=== PATIENT | male | born 1960 | race Hispanic/Latino ===

== ENCOUNTER 2020-09-27 18:18 | Inpatient (IN) | payer MEDICARE ==
[~2020-09-27] VITALS: Ht 190.5 cm; Wt 61.3 kg
[2020-09-27] MEDS ORDERED: VANCOMYCIN HCL 1GM/NS 250 ML BAG IV SCH (19:30)
[2020-09-27 20:00] VITALS: BP 97/57
[2020-09-27] MEDS: SODIUM CHLORIDE 0.9% 1000ML 1,000 ML IV SCH (20:59)
[2020-09-27 21:43] LABS: ALBUMIN 3.1 g/dL (3.5-5.0); ALBUMIN/GLOBULIN RATIO 0.7 (0.8-2.0); ANION GAP 22.7 mmol/L (8-16); CREATININE, SERUM 5.81 mg/dL (0.72-1.25); POTASSIUM 5.7 mmol/L (3.5-5.1)
[2020-09-27 21:44] LABS: HEMATOCRIT 24.2 % (38.2-49.6); HEMOGLOBIN 7.7 g/dL (14.0-18.0); MEAN CORPUSCULAR HEMOGLOBIN 29.5 pg (28-32); MEAN CORPUSCULAR HGB CONC 31.8 g/dL (31-35); MEAN CORPUSCULAR VOLUME 92.7 fL (81-99); PLATELET COUNT 137 x10e3/uL (140-360); RED BLOOD COUNT 2.61 x10e6/uL (4.3-5.7); RED CELL DISTRIBUTION WIDTH 13.7 % (11.7-14.4)
[2020-09-27] MEDS: PIPERACILLIN/TAZOBACTAM 3.375 GM in SODIUM CHLORIDE 0.9% 50ML 50 ML IV SCH (21:55)
[2020-09-27 22:02] LABS: EOSINOPHILS % (MANUAL) 1 % (0-7); LYMPHOCYTES % (MANUAL) 10 % (19-48); MONOCYTES % (MANUAL) 9 % (3.4-9.0); NEUTROPHILS % (MANUAL) 80 % (40-74); PLATELET MORPHOLOGY COMMENT NORMAL
[2020-09-27 22:04] LABS: PLATELET ESTIMATE SLIGHTLY DECREASED; RBC MORPHOLOGY COMMENT NORMAL
[2020-09-27] MEDS ORDERED: SOD POLYSTYRENE SULFONATE SUSP 15 GM/60 ML BTL PO ONE (23:00)
[2020-09-27] MEDS ORDERED: LISINOPRIL2.5 MG PO (23:11)
[2020-09-27] MEDS ORDERED: METFORMIN HCL500 MG PO (23:11)
[2020-09-27] MEDS ORDERED: FERROUS SULFAT325 MG PO (23:11)
[2020-09-27] MEDS ORDERED: GABAPENTIN400 MG PO (23:11)
[2020-09-27] MEDS ORDERED: DORZOLAMIDE 2%10 ML OD (23:16)
[2020-09-27] MEDS ORDERED: ARICEPT5 MG PO (23:16)
[2020-09-27] MEDS ORDERED: LANTANAPROST OD (23:16)
[2020-09-27] MEDS ORDERED: RHOPRESSA2.5 ML OD (23:16)
[2020-09-27] MEDS ORDERED: COMBIGEN OU (23:17)
[2020-09-28] VITALS (8 sets, daily range): BP systolic 96–131; BP diastolic 57–75
[2020-09-28 06:02] LABS: ANION GAP 20.6 mmol/L (8-16); CALCIUM 8.3 mg/dL (8.4-10.2); CREATININE, SERUM 5.85 mg/dL (0.72-1.25); POTASSIUM 4.6 mmol/L (3.5-5.1)
[2020-09-28] MEDS ORDERED: LIPITOR10 MG PO (06:21)
[2020-09-28 06:34] LABS: THYROID STIMULATING HORMONE 0.561 uIU/mL (0.350-4.940)
[2020-09-28] MEDS ORDERED: LANTUS 3ML100 UNITS/ SQ ×2 (07:53)
[2020-09-28] MEDS: SODIUM CHLORIDE 0.9% 1000ML 1,000 ML IV SCH ×2 (08:30→21:57)
[2020-09-28] MEDS: PIPERACILLIN/TAZOBACTAM 3.375 GM in SODIUM CHLORIDE 0.9% 50ML 50 ML IV SCH ×2 (08:30→21:51)
[2020-09-28] MEDS ORDERED: DEXTROSE 50% SYRINGE 50 ML IV PRN (13:00)
[2020-09-28] MEDS: INSULIN LISPRO 100 UNIT/1 ML 3ML VIAL SQ SCH ×3 (16:30→22:25)
[2020-09-28] MEDS: MUPIROCIN 2% OINT 22 GM TUBE TOP SCH (16:34)
[2020-09-28 18:12] LABS: COLOR,URINE YELLOW (YELLOW)
[2020-09-28 18:13] LABS: CLARITY,URINE CLEAR (CLEAR); KETONES,URINE NEGATIVE (NEGATIVE); LEUKOCYTE ESTERASE ,URINE NEGATIVE (NEGATIVE); NITRITE,URINE NEGATIVE (NEGATIVE); PROTEIN,URINE DIPSTICK 1+ (NEGATIVE); URINE UROBILINOGEN 0.2 mg/dL (0.2 - 1)
[2020-09-28 18:16] LABS: AMORPHOUS SEDIMENT,URINE FEW (FEW); BACTERIA,URINE RARE /HPF; RBC,URINE 0-5 /HPF (0-5)
[2020-09-28] MEDS ORDERED: ONDANSETRON HCL INJ 2MG/ML 2ML 2 MG/ML VIAL IV PRN (18:45)
[2020-09-28 18:57] LABS: EOSINOPHIL SMEAR,URINE NONE SEEN (NONE SEEN)
[2020-09-28] MEDS ORDERED: FUROSEMIDE INJ 10 MG/ML 4 ML VIAL IV STA (23:08)
[2020-09-28] MEDS ORDERED: FUROSEMIDE INJ 10 MG/ML 4 ML VIAL ONE (23:23)
[2020-09-28] MEDS ORDERED: ACETAMINOPHEN 325 MG TAB ONE (23:23)
[2020-09-28] MEDS: ACETAMINOPHEN 325 MG TAB PO PRN (23:30)
[2020-09-29] VITALS (8 sets, daily range): BP systolic 106–174; BP diastolic 65–84
[2020-09-29] MEDS: ACETAMINOPHEN 325 MG TAB PO PRN ×2 (00:53→21:12)
[2020-09-29 05:24] LABS: BASOPHILS # (AUTO) 0.1 (0.0-0.1); BASOPHILS % 0.4 % (0.0-1.0); EOSINOPHILS % 0.1 % (0.0-6.0); HEMATOCRIT 21.3 % (38.2-49.6); LYMPHOCYTES # (AUTO) 0.6 (1.0-3.2); LYMPHOCYTES % 5.2 % (18.0-39.1); MEAN CORPUSCULAR HEMOGLOBIN 29.5 pg (28-32); MEAN CORPUSCULAR HGB CONC 32.4 g/dL (31-35); MONOCYTES # (AUTO) 1.2 (0.2-0.8); MONOCYTES % 10.4 % (4.4-11.3); NEUTROPHILS # (AUTO) 9.7 (2.1-6.9); NEUTROPHILS % 82.9 % (38.7-80.0); PLATELET COUNT 181 x10e3/uL (140-360); RED BLOOD COUNT 2.34 x10e6/uL (4.3-5.7); RED CELL DISTRIBUTION WIDTH 13.6 % (11.7-14.4)
[2020-09-29 05:53] LABS: ANION GAP 20.7 mmol/L (8-16); CALCIUM 8.4 mg/dL (8.4-10.2); CREATININE, SERUM 6.8 mg/dL (0.72-1.25); POTASSIUM 4.7 mmol/L (3.5-5.1)
[2020-09-29 06:12] LABS: HEMOGLOBIN 6.9 g/dL (14.0-18.0)
[2020-09-29] MEDS: INSULIN LISPRO 100 UNIT/1 ML 3ML VIAL SQ SCH ×4 (07:30→21:14)
[2020-09-29] MEDS: MUPIROCIN 2% OINT 22 GM TUBE TOP SCH (09:00)
[2020-09-29] MEDS: PIPERACILLIN/TAZOBACTAM 3.375 GM in SODIUM CHLORIDE 0.9% 50ML 50 ML IV SCH ×2 (09:00→21:08)
[2020-09-29] MEDS ORDERED: VANCOMYCIN HCL 1GM/NS 250 ML BAG IV ONE (13:30)
[2020-09-29] MEDS ORDERED: Vancomycin IV 1 GM in SODIUM CHLORIDE 0.9% 250ML 250 ML IV ONE (14:30)
[2020-09-29] MEDS: SODIUM CHLORIDE 0.9% 1000ML 1,000 ML IV SCH (17:30)
[2020-09-29] MEDS ORDERED: LIDOCAINE HCL 1% LOCAL INJ 20 ML VIAL ONE (17:54)
[2020-09-29] MEDS ORDERED: SODIUM CHLORIDE 0.9% 250ML 250 ML ONE (17:54)
[2020-09-29] MEDS: EPOETIN ALFA-EPBX 10,000 UNIT/ML VIAL SC SCH (18:00)
[2020-09-29] MEDS ORDERED: SODIUM CHLORIDE 0.9% 250ML 250 ML IV ONE (19:45)
[2020-09-29 19:46] LABS: INR 1.07; PROTHROMBIN TIME 14.1 seconds (11.9-14.5)
[2020-09-30] VITALS (7 sets, daily range): BP systolic 95–148; BP diastolic 57–84
[2020-09-30 06:23] LABS: CALCIUM IONIZED 1.2 mmol/L (1.09-1.30)
[2020-09-30 06:39] LABS: ANION GAP 20.8 mmol/L (8-16); CALCIUM 8.2 mg/dL (8.4-10.2); CREATININE, SERUM 7.43 mg/dL (0.72-1.25); POTASSIUM 4.8 mmol/L (3.5-5.1)
[2020-09-30] MEDS: SODIUM CHLORIDE 0.9% 1000ML 1,000 ML IV SCH (07:45)
[2020-09-30] MEDS: PIPERACILLIN/TAZOBACTAM 3.375 GM in SODIUM CHLORIDE 0.9% 50ML 50 ML IV SCH ×2 (08:54→21:37)
[2020-09-30] MEDS: MUPIROCIN 2% OINT 22 GM TUBE TOP SCH (08:54)
[2020-09-30] MEDS: INSULIN LISPRO 100 UNIT/1 ML 3ML VIAL SQ SCH ×4 (09:22→22:07)
[2020-09-30] MEDS ORDERED: SODIUM CHLORIDE 0.9% 250ML 500 ML IV PRN (13:00)
[2020-09-30] MEDS ORDERED: SODIUM CHLORIDE 0.9% 1000ML 2,000 ML IV PRN (13:00)
[2020-09-30] MEDS ORDERED: ALBUMIN 25% 12.5GM 0.25 GM/ML BTL IV PRN (13:00)
[2020-09-30] MEDS ORDERED: MANNITOL 25% 12.5GM/50 ML VIAL IV PRN (13:00)
[2020-09-30] MEDS ORDERED: HEPARIN SOD (PORCINE) 1000 UNIT/ML SDV IV PRN (13:00)
[2020-09-30] MEDS ORDERED: MANNITOL 25% 12.5GM/50ML 100 ML ONE (13:01)
[2020-09-30] MEDS ORDERED: SODIUM CHLORIDE 0.9% 1000ML 2,000 ML ONE (13:02)
[2020-09-30] MEDS ORDERED: MANNITOL 25% 12.5GM/50ML 50 ML ONE (13:30)
[2020-09-30 14:11] LABS: CALCIUM 7.9 mg/dL (8.4-10.2); CREATININE, SERUM 6.78 mg/dL (0.72-1.25)
[2020-10-01] VITALS (9 sets, daily range): BP systolic 129–156; BP diastolic 70–87
[2020-10-01 06:40] LABS: ANION GAP 17.9 mmol/L (8-16); CALCIUM 8.5 mg/dL (8.4-10.2); CREATININE, SERUM 5.76 mg/dL (0.72-1.25); POTASSIUM 3.9 mmol/L (3.5-5.1)
[2020-10-01] MEDS: PIPERACILLIN/TAZOBACTAM 3.375 GM in SODIUM CHLORIDE 0.9% 50ML 50 ML IV SCH ×2 (09:30→21:55)
[2020-10-01] MEDS: MUPIROCIN 2% OINT 22 GM TUBE TOP SCH (09:30)
[2020-10-01] MEDS: INSULIN LISPRO 100 UNIT/1 ML 3ML VIAL SQ SCH ×4 (11:01→21:53)
[2020-10-01 17:57] LABS: TOTAL PROTEIN, URINE 38.3 mg/dL (1-14)
[2020-10-01] MEDS: ACETAMINOPHEN 325 MG TAB PO PRN (23:15)
[2020-10-02] VITALS (9 sets, daily range): BP systolic 122–148; BP diastolic 77–88
[2020-10-02 06:13] LABS: ANION GAP 20.5 mmol/L (8-16); CALCIUM 8.5 mg/dL (8.4-10.2); CREATININE, SERUM 5.99 mg/dL (0.72-1.25); POTASSIUM 3.5 mmol/L (3.5-5.1)
[2020-10-02] MEDS: INSULIN LISPRO 100 UNIT/1 ML 3ML VIAL SQ SCH ×4 (08:00→20:51)
[2020-10-02] MEDS: PIPERACILLIN/TAZOBACTAM 3.375 GM in SODIUM CHLORIDE 0.9% 50ML 50 ML IV SCH ×2 (08:48→20:52)
[2020-10-02] MEDS: MUPIROCIN 2% OINT 22 GM TUBE TOP SCH (08:53)
[2020-10-02 09:58] LABS: BASOPHILS # (AUTO) 0.1 (0.0-0.1); BASOPHILS % 0.4 % (0.0-1.0); EOSINOPHILS # (AUTO) 0.1 (0.0-0.4); EOSINOPHILS % 0.9 % (0.0-6.0); HEMATOCRIT 29.4 % (38.2-49.6); HEMOGLOBIN 9.8 g/dL (14.0-18.0); LYMPHOCYTES # (AUTO) 0.9 (1.0-3.2); MEAN CORPUSCULAR HEMOGLOBIN 29.8 pg (28-32); MEAN CORPUSCULAR HGB CONC 33.3 g/dL (31-35); MEAN CORPUSCULAR VOLUME 89.4 fL (81-99); MONOCYTES # (AUTO) 0.8 (0.2-0.8); MONOCYTES % 5.2 % (4.4-11.3); NEUTROPHILS # (AUTO) 12.6 (2.1-6.9); NEUTROPHILS % 86.6 % (38.7-80.0); PLATELET COUNT 279 x10e3/uL (140-360); RED BLOOD COUNT 3.29 x10e6/uL (4.3-5.7); RED CELL DISTRIBUTION WIDTH 13.5 % (11.7-14.4)
[2020-10-02] MEDS: EPOETIN ALFA-EPBX 10,000 UNIT/ML VIAL SC SCH (17:19)
[2020-10-02] MEDS: ACETAMINOPHEN 325 MG TAB PO PRN (21:02)
[2020-10-03 00:13] VITALS: BP 118/72
[2020-10-03 05:15] VITALS: BP 138/82
[2020-10-03 05:37] LABS: BASOPHILS # (AUTO) 0.1 (0.0-0.1); BASOPHILS % 0.5 % (0.0-1.0); EOSINOPHILS # (AUTO) 0.2 (0.0-0.4); EOSINOPHILS % 1.4 % (0.0-6.0); HEMATOCRIT 28.4 % (38.2-49.6); HEMOGLOBIN 9.4 g/dL (14.0-18.0); LYMPHOCYTES # (AUTO) 1.2 (1.0-3.2); LYMPHOCYTES % 10.3 % (18.0-39.1); MEAN CORPUSCULAR HEMOGLOBIN 29.7 pg (28-32); MEAN CORPUSCULAR HGB CONC 33.1 g/dL (31-35); MEAN CORPUSCULAR VOLUME 89.9 fL (81-99); NEUTROPHILS # (AUTO) 8.7 (2.1-6.9); NEUTROPHILS % 77.5 % (38.7-80.0); PLATELET COUNT 310 x10e3/uL (140-360); RED BLOOD COUNT 3.16 x10e6/uL (4.3-5.7); RED CELL DISTRIBUTION WIDTH 13.4 % (11.7-14.4)
[2020-10-03 08:00] VITALS: BP 129/94
[2020-10-03] MEDS: PIPERACILLIN/TAZOBACTAM 3.375 GM in SODIUM CHLORIDE 0.9% 50ML 50 ML IV SCH ×2 (08:53→20:42)
[2020-10-03] MEDS: MUPIROCIN 2% OINT 22 GM TUBE TOP SCH (08:55)
[2020-10-03 12:00] VITALS: BP 160/89
[2020-10-03] MEDS: INSULIN LISPRO 100 UNIT/1 ML 3ML VIAL SQ SCH ×4 (12:00→20:45)
[2020-10-03 16:00] VITALS: BP 150/74
[2020-10-03 18:11] LABS: INR 1.08; PROTHROMBIN TIME 14.2 seconds (11.9-14.5)
[2020-10-03 19:51] VITALS: BP 141/78
[2020-10-03] MEDS: ACETAMINOPHEN 325 MG TAB PO PRN (21:49)
[2020-10-04] VITALS (9 sets, daily range): BP systolic 129–149; BP diastolic 75–86
[2020-10-04 06:13] LABS: ANION GAP 16.8 mmol/L (8-16); CALCIUM 8.4 mg/dL (8.4-10.2); CREATININE, SERUM 2.82 mg/dL (0.72-1.25); POTASSIUM 3.8 mmol/L (3.5-5.1)
[2020-10-04] MEDS: PIPERACILLIN/TAZOBACTAM 3.375 GM in SODIUM CHLORIDE 0.9% 50ML 50 ML IV SCH ×2 (09:08→21:57)
[2020-10-04] MEDS: MUPIROCIN 2% OINT 22 GM TUBE TOP SCH (09:08)
[2020-10-04] MEDS: INSULIN LISPRO 100 UNIT/1 ML 3ML VIAL SQ SCH ×4 (09:22→21:50)
[2020-10-04] MEDS ORDERED: SODIUM CHLORIDE 0.9% 250ML 250 ML ONE (13:50)
[2020-10-04] MEDS ORDERED: LIDOCAINE HCL 1% LOCAL INJ 20 ML VIAL ONE (13:50)
[2020-10-04] MEDS ORDERED: HEPARIN SOD (PORCINE) 1000 UNIT/ML SDV ONE (13:59)
[2020-10-04] MEDS ORDERED: MIDAZOLAM HCL 2 MG/2 ML VIAL ONE (13:59)
[2020-10-04] MEDS ORDERED: FENTANYL CITRATE/PF 100MCG/2 ML INJ ONE (14:00)
[2020-10-04] MEDS ORDERED: CEFAZOLIN SOD 1 GM/NS 50ML 50 ML IV ONE (14:34)
[2020-10-04] MEDS ORDERED: LIDOCAINE 2% /EPINEPHRINE 20 ML SDV INJ ONE (14:38)
[2020-10-04] MEDS: EPOETIN ALFA-EPBX 10,000 UNIT/ML VIAL SC SCH (17:27)
[2020-10-04] MEDS: ACETAMINOPHEN 325 MG TAB PO PRN (23:34)
[2020-10-05] VITALS (8 sets, daily range): BP systolic 129–150; BP diastolic 61–87
[2020-10-05] MEDS: ACETAMINOPHEN 325 MG TAB PO PRN ×2 (05:13→17:10)
[2020-10-05 06:41] LABS: ANION GAP 19.6 mmol/L (8-16); CALCIUM 8.3 mg/dL (8.4-10.2); CREATININE, SERUM 3.5 mg/dL (0.72-1.25); POTASSIUM 3.6 mmol/L (3.5-5.1)
[2020-10-05] MEDS: INSULIN LISPRO 100 UNIT/1 ML 3ML VIAL SQ SCH ×4 (07:30→21:13)
[2020-10-05] MEDS: PIPERACILLIN/TAZOBACTAM 3.375 GM in SODIUM CHLORIDE 0.9% 50ML 50 ML IV SCH ×2 (09:05→21:20)
[2020-10-05] MEDS: GABAPENTIN 100 MG CAP PO SCH (22:13)
[2020-10-06] VITALS (7 sets, daily range): BP systolic 122–147; BP diastolic 75–88
[2020-10-06] MEDS: ACETAMINOPHEN 325 MG TAB PO PRN ×2 (02:15→08:51)
[2020-10-06 06:30] LABS: ANION GAP 20.4 mmol/L (8-16); CALCIUM 8.4 mg/dL (8.4-10.2); CREATININE, SERUM 3.63 mg/dL (0.72-1.25); POTASSIUM 3.4 mmol/L (3.5-5.1)
[2020-10-06] MEDS: INSULIN LISPRO 100 UNIT/1 ML 3ML VIAL SQ SCH ×4 (07:30→21:49)
[2020-10-06] MEDS: GABAPENTIN 100 MG CAP PO SCH ×3 (08:47→21:19)
[2020-10-06] MEDS: PIPERACILLIN/TAZOBACTAM 3.375 GM in SODIUM CHLORIDE 0.9% 50ML 50 ML IV SCH ×2 (08:47→21:20)
[2020-10-06] MEDS ORDERED: POTASSIUM CHLORIDE 10MEQ EA PO ONE (16:15)
[2020-10-06] MEDS ORDERED: LIDOCAINE HCL 2% LOCAL 20 ML VIAL ONE (16:30)
[2020-10-06] MEDS ORDERED: HEPARIN SOD (PORCINE) 1000 UNIT/ML 30ML ONE (16:30)
[2020-10-06] MEDS ORDERED: FENTANYL CITRATE/PF 100MCG/2 ML INJ ONE (16:30)
[2020-10-06] MEDS ORDERED: MIDAZOLAM HCL 2 MG/2 ML VIAL ONE (16:30)
[2020-10-06] MEDS ORDERED: SODIUM CHLORIDE 0.9% 1000ML 1,000 ML ONE (16:31)
[2020-10-06] MEDS ORDERED: IOPAMIDOL 300MG/ML 100 ML INFUS..BTL IV ONE (16:31)
[2020-10-06] MEDS ORDERED: HEPARIN SOD/SOD CHLORIDE 0 ML ONE (16:31)
[2020-10-06] MEDS ORDERED: COMBIGEN OU SCH (17:00)
[2020-10-06] MEDS ORDERED: DORZOLAMIDE HCL OD SCH (17:00)
[2020-10-06] MEDS: DORZOLAMIDE HCL (OPTH) 10 ML BOTTLE OP SCH (17:16)
[2020-10-06] MEDS: BRIMONIDINE/TIMOLOL (OPTH SOLN 5 ML DRPETTE OP SCH (17:16)
[2020-10-06] MEDS: NETARSUDIL MESYLATE OP SCH (21:00)
[2020-10-06] MEDS ORDERED: [UNRECOGNIZED DRUG - OTHER] OD SCH (21:00)
[2020-10-06] MEDS ORDERED: INSULIN GLARGINE 100 UNITS/ML VIAL SQ SCH (21:00)
[2020-10-06] MEDS: LATANOPROST(OPTH) 2.5 ML BTL OD SCH (21:21)
[2020-10-07] VITALS: BP 115/72
[2020-10-07 04:00] VITALS: BP 124/78
[2020-10-07] MEDS: INSULIN LISPRO 100 UNIT/1 ML 3ML VIAL SQ SCH ×4 (07:30→22:44)
[2020-10-07 07:54] LABS: ANION GAP 15.9 mmol/L (8-16); CALCIUM 8.4 mg/dL (8.4-10.2); CREATININE, SERUM 3.64 mg/dL (0.72-1.25); POTASSIUM 3.9 mmol/L (3.5-5.1)
[2020-10-07 08:07] LABS: CHOL/HDL RATIO 6.1 (3.9-4.7)
[2020-10-07 08:11] VITALS: BP 120/76
[2020-10-07] MEDS: GABAPENTIN 100 MG CAP PO SCH ×3 (09:44→22:49)
[2020-10-07] MEDS: PIPERACILLIN/TAZOBACTAM 3.375 GM in SODIUM CHLORIDE 0.9% 50ML 50 ML IV SCH (09:44)
[2020-10-07] MEDS: BRIMONIDINE/TIMOLOL (OPTH SOLN 5 ML DRPETTE OP SCH ×2 (09:50→18:09)
[2020-10-07] MEDS: DORZOLAMIDE HCL (OPTH) 10 ML BOTTLE OP SCH ×2 (09:51→18:10)
[2020-10-07 14:43] VITALS: BP 106/78
[2020-10-07 17:21] VITALS: BP 138/83
[2020-10-07 20:00] VITALS: BP 124/86
[2020-10-07] MEDS: NETARSUDIL MESYLATE OP SCH (21:00)
[2020-10-07] MEDS: INSULIN GLARGINE 100 UNITS/ML VIAL SQ SCH (22:38)
[2020-10-07] MEDS: ATORVASTATIN 20 MG TAB PO SCH (22:45)
[2020-10-07] MEDS: LATANOPROST(OPTH) 2.5 ML BTL OD SCH (22:51)
[2020-10-08] VITALS: BP 110/66
[2020-10-08 04:00] VITALS: BP 131/79
[2020-10-08] MEDS: BRIMONIDINE/TIMOLOL (OPTH SOLN 5 ML DRPETTE OP SCH ×2 (08:23→16:58)
[2020-10-08] MEDS: GABAPENTIN 100 MG CAP PO SCH ×3 (08:24→21:24)
[2020-10-08] MEDS: DORZOLAMIDE HCL (OPTH) 10 ML BOTTLE OP SCH ×2 (08:24→16:58)
[2020-10-08] MEDS: ASPIRIN 81 MG CHEW TAB PO SCH (08:24)
[2020-10-08] MEDS: INSULIN LISPRO 100 UNIT/1 ML 3ML VIAL SQ SCH ×4 (08:26→21:31)
[2020-10-08 09:09] VITALS: BP 119/74
[2020-10-08 10:19] LABS: ANION GAP 18.6 mmol/L (8-16); CALCIUM 8.9 mg/dL (8.4-10.2); CREATININE, SERUM 3.51 mg/dL (0.72-1.25); POTASSIUM 3.6 mmol/L (3.5-5.1)
[2020-10-08 11:20] VITALS: BP 115/71
[2020-10-08 15:55] VITALS: BP 113/71
[2020-10-08] MEDS ORDERED: PIPERACILLIN/TAZOBACTAM 3.375 GM in SODIUM CHLORIDE 0.9% 50ML 50 ML IV ONE (17:00)
[2020-10-08 20:00] VITALS: BP 139/76
[2020-10-08] MEDS: ATORVASTATIN 20 MG TAB PO SCH (21:24)
[2020-10-08] MEDS: LATANOPROST(OPTH) 2.5 ML BTL OD SCH (21:24)
[2020-10-08] MEDS: NETARSUDIL MESYLATE OP SCH (21:24)
[2020-10-08] MEDS: INSULIN GLARGINE 100 UNITS/ML VIAL SQ SCH (21:33)
[2020-10-09] VITALS (8 sets, daily range): BP systolic 103–161; BP diastolic 65–85
[2020-10-09 05:09] LABS: BASOPHILS # (AUTO) 0.1 (0.0-0.1); BASOPHILS % 1.5 % (0.0-1.0); EOSINOPHILS # (AUTO) 0.2 (0.0-0.4); HEMOGLOBIN 8.5 g/dL (14.0-18.0); LYMPHOCYTES # (AUTO) 1.2 (1.0-3.2); LYMPHOCYTES % 17.9 % (18.0-39.1); MEAN CORPUSCULAR HEMOGLOBIN 29.2 pg (28-32); MEAN CORPUSCULAR HGB CONC 31.5 g/dL (31-35); MEAN CORPUSCULAR VOLUME 92.8 fL (81-99); MONOCYTES # (AUTO) 0.7 (0.2-0.8); MONOCYTES % 11.1 % (4.4-11.3); NEUTROPHILS # (AUTO) 4.4 (2.1-6.9); PLATELET COUNT 473 x10e3/uL (140-360); RED BLOOD COUNT 2.91 x10e6/uL (4.3-5.7); RED CELL DISTRIBUTION WIDTH 13.2 % (11.7-14.4)
[2020-10-09 05:44] LABS: ANION GAP 15.8 mmol/L (8-16); CALCIUM 8.6 mg/dL (8.4-10.2); CREATININE, SERUM 3.29 mg/dL (0.72-1.25); POTASSIUM 3.8 mmol/L (3.5-5.1)
[2020-10-09] MEDS: DORZOLAMIDE HCL (OPTH) 10 ML BOTTLE OP SCH ×2 (08:55→17:14)
[2020-10-09] MEDS: BRIMONIDINE/TIMOLOL (OPTH SOLN 5 ML DRPETTE OP SCH ×2 (08:55→17:14)
[2020-10-09] MEDS: GABAPENTIN 100 MG CAP PO SCH ×3 (08:55→20:22)
[2020-10-09] MEDS: ASPIRIN 81 MG CHEW TAB PO SCH (08:55)
[2020-10-09] MEDS: INSULIN LISPRO 100 UNIT/1 ML 3ML VIAL SQ SCH ×6 (08:58→21:00)
[2020-10-09] MEDS: ATORVASTATIN 20 MG TAB PO SCH (20:22)
[2020-10-09] MEDS: LATANOPROST(OPTH) 2.5 ML BTL OD SCH (21:00)
[2020-10-09] MEDS: INSULIN GLARGINE 100 UNITS/ML VIAL SQ SCH (21:00)
[2020-10-09] MEDS: NETARSUDIL MESYLATE OP SCH (21:00)
[2020-10-10] VITALS (7 sets, daily range): BP systolic 106–143; BP diastolic 70–79
[2020-10-10 05:14] LABS: BASOPHILS # (AUTO) 0.1 (0.0-0.1); BASOPHILS % 1.4 % (0.0-1.0); EOSINOPHILS # (AUTO) 0.2 (0.0-0.4); EOSINOPHILS % 2.6 % (0.0-6.0); HEMATOCRIT 27.3 % (38.2-49.6); HEMOGLOBIN 8.8 g/dL (14.0-18.0); LYMPHOCYTES # (AUTO) 1.2 (1.0-3.2); LYMPHOCYTES % 18.6 % (18.0-39.1); MEAN CORPUSCULAR HEMOGLOBIN 29.9 pg (28-32); MEAN CORPUSCULAR HGB CONC 32.2 g/dL (31-35); MEAN CORPUSCULAR VOLUME 92.9 fL (81-99); MONOCYTES # (AUTO) 0.7 (0.2-0.8); MONOCYTES % 10.8 % (4.4-11.3); NEUTROPHILS # (AUTO) 4.3 (2.1-6.9); PLATELET COUNT 475 x10e3/uL (140-360); RED BLOOD COUNT 2.94 x10e6/uL (4.3-5.7)
[2020-10-10 05:37] LABS: ANION GAP 15.9 mmol/L (8-16); CALCIUM 8.5 mg/dL (8.4-10.2); CREATININE, SERUM 3.47 mg/dL (0.72-1.25); POTASSIUM 3.9 mmol/L (3.5-5.1)
[2020-10-10] MEDS: INSULIN LISPRO 100 UNIT/1 ML 3ML VIAL SQ SCH ×7 (08:39→20:51)
[2020-10-10] MEDS: DORZOLAMIDE HCL (OPTH) 10 ML BOTTLE OP SCH ×2 (08:40→16:54)
[2020-10-10] MEDS: BRIMONIDINE/TIMOLOL (OPTH SOLN 5 ML DRPETTE OP SCH ×2 (08:40→16:54)
[2020-10-10] MEDS: GABAPENTIN 100 MG CAP PO SCH ×3 (08:40→20:49)
[2020-10-10] MEDS: ATORVASTATIN 20 MG TAB PO SCH (20:48)
[2020-10-10] MEDS: INSULIN GLARGINE 100 UNITS/ML VIAL SQ SCH (20:50)
[2020-10-10] MEDS: NETARSUDIL MESYLATE OP SCH (20:58)
[2020-10-10] MEDS: LATANOPROST(OPTH) 2.5 ML BTL OD SCH (20:58)
[2020-10-11] VITALS (8 sets, daily range): BP systolic 115–136; BP diastolic 70–85
[2020-10-11 05:39] LABS: CALCIUM 8.7 mg/dL (8.4-10.2); CREATININE, SERUM 3.16 mg/dL (0.72-1.25)
[2020-10-11] MEDS: INSULIN LISPRO 100 UNIT/1 ML 3ML VIAL SQ SCH ×7 (09:03→20:53)
[2020-10-11] MEDS: GABAPENTIN 100 MG CAP PO SCH ×3 (09:04→20:51)
[2020-10-11] MEDS: BRIMONIDINE/TIMOLOL (OPTH SOLN 5 ML DRPETTE OP SCH ×2 (09:04→16:50)
[2020-10-11] MEDS: DORZOLAMIDE HCL (OPTH) 10 ML BOTTLE OP SCH ×2 (09:04→16:50)
[2020-10-11] MEDS: LATANOPROST(OPTH) 2.5 ML BTL OD SCH (20:51)
[2020-10-11] MEDS: ATORVASTATIN 20 MG TAB PO SCH (20:51)
[2020-10-11] MEDS: NETARSUDIL MESYLATE OP SCH (20:51)
[2020-10-11] MEDS: INSULIN GLARGINE 100 UNITS/ML VIAL SQ SCH (20:54)
[2020-10-12 00:01] VITALS: BP 116/67
[2020-10-12 05:16] VITALS: BP 113/69
[2020-10-12] MEDS: INSULIN LISPRO 100 UNIT/1 ML 3ML VIAL SQ SCH ×4 (07:30→11:30)
[2020-10-12 08:03] VITALS: BP 110/66
[2020-10-12 08:14] VITALS: BP 110/66
[2020-10-12] MEDS: DORZOLAMIDE HCL (OPTH) 10 ML BOTTLE OP SCH (08:29)
[2020-10-12] MEDS: BRIMONIDINE/TIMOLOL (OPTH SOLN 5 ML DRPETTE OP SCH (08:29)
[2020-10-12] MEDS: GABAPENTIN 100 MG CAP PO SCH (11:17)
[2020-10-12 11:55] VITALS: BP 130/83
[2020-10-12] MEDS ORDERED: ONDANSETRON HCL 4 MG ORAL DISINTEGRATING TAB PO PRN (12:00)
== END 2020-10-12 15:00 | disposition home or self-care (01) | DRG 623 ==
LOC: MED/SURG3 18:18
PROVIDERS: ADMIT Internal Medicine; ATTEND Internal Medicine
PROC: 0KBV0ZZ Excision of Right Foot Muscle, Open Approach (ICD-10-PCS; principal; 2020-09-29)
PROC: 02HV33Z Insertion of Infusion Device into Superior Vena Cava, Percutaneous Approach (ICD-10-PCS; 2020-09-30)
PROC: 30243N1 Transfusion of Nonautologous Red Blood Cells into Central Vein, Percutaneous Approach (ICD-10-PCS; 2020-09-30)
PROC: 5A1D70Z Performance of Urinary Filtration, Intermittent, Less than 6 Hours Per Day (ICD-10-PCS; 2020-09-30)
PROC: 0JH63XZ Insertion of Tunneled Vascular Access Device into Chest Subcutaneous Tissue and Fascia, Percutaneous Approach (ICD-10-PCS; 2020-10-11)
PROC: 02HV33Z Insertion of Infusion Device into Superior Vena Cava, Percutaneous Approach (ICD-10-PCS; 2020-10-11)
DX: E11.69 Type 2 diabetes mellitus with other specified complication (principal); L03.115 Cellulitis of right lower limb; M86.8X7 Other osteomyelitis, ankle and foot; I12.0 Hypertensive chronic kidney disease with stage 5 chronic kidney disease or end stage renal disease; E87.2 Acidosis; E44.0 Moderate protein-calorie malnutrition; E11.621 Type 2 diabetes mellitus with foot ulcer; N17.9 Acute kidney failure, unspecified; E11.22 Type 2 diabetes mellitus with diabetic chronic kidney disease; Z99.2 Dependence on renal dialysis; Z79.899 Other long term (current) drug therapy; E11.51 Type 2 diabetes mellitus with diabetic peripheral angiopathy without gangrene; E11.65 Type 2 diabetes mellitus with hyperglycemia; E78.5 Hyperlipidemia, unspecified; Z20.822 Contact with and (suspected) exposure to COVID-19; N18.6 End stage renal disease; D63.1 Anemia in chronic kidney disease; N17.0 Acute kidney failure with tubular necrosis; I87.2 Venous insufficiency (chronic) (peripheral); E11.36 Type 2 diabetes mellitus with diabetic cataract; E78.00 Pure hypercholesterolemia, unspecified
CPT/HCPCS: 36415; 36556; 36558; 36589; 74176; 74470; 76770; 76937; 77001; 80048; 80053; 80061; 80202; 81001; 81015; 81050; 82270; 82607; 82746; 82948; 83036; 83540; 84156; 84165; 84443; 84466; 85007; 85025; 85027; 85610; 86039; 86160; 86225; 86705; 86706; 86850; 86900; 86920; 87040; 87340; 93306; 93925; 96361; 96372; 97139; 99251; C1752; C1769; C1892; J0690; J1644; J1815; J1940; J2001; J2150; J2250; J2405; J2543; J3010; J3370; J7030; J7050; P9016; Q9967; U0002